=== PATIENT | female | born 1970 | race Caucasian/White ===

== ENCOUNTER 2016-12-23 09:56 | Emergency (ER) | payer BC, MEDICARE ==
[2016-12-23] MEDS ORDERED: IOPAMIDOL 370 (76%) 100 ML VIAL IV ONE (09:57)
[2016-12-23 10:31] LABS: SPECIFIC GRAVITY 1.015 (1.001-1.030); URINE BILIRUBIN NEGATIVE (NEGATIVE); URINE BLOOD NEGATIVE (NEGATIVE); URINE GLUCOSE (UA) NEGATIVE (NEGATIVE); URINE LEUKOCYTE ESTERASE NEGATIVE (NEGATIVE); URINE NITRITE NEGATIVE (NEGATIVE); URINE PROTEIN NEGATIVE (NEGATIVE); URINE UROBILINOGEN NORMAL (0-1 mg/dl)
[2016-12-23 10:32] LABS: URINE APPEARANCE CLEAR; URINE COLOR YELLOW
[2016-12-23 10:34] LABS: HCG,QUALITATIVE URINE NEGATIVE
[2016-12-23] MEDS ORDERED: HYDROMORPHONE HCL 1 MG/ML SYRINGE ONE (11:29)
[2016-12-23] MEDS ORDERED: PROCHLORPERAZINE 5 MG/ML 2 ML VIAL ONE (11:29)
[2016-12-23] MEDS ORDERED: LACTATED RINGERS 1,000 ML ONE (11:29)
[2016-12-23 11:41] LABS: ABSOLUTE NEUTROPHIL COUNT 2.9 K/mm3 (1.8-7.7); BASO % 0.5 % (0.2-1.0); EOS # 1.3 (0.0-0.5); EOS % 16.9 % (0.9-2.9); HEMATOCRIT 37.2 % (37.0-47.0); HEMOGLOBIN 12.4 gm/l (12.0-16.0); IMM NEUT% 0.1 % (0-1); LYMPH # 2.8 (1.0-4.8); MEAN CELL VOLUME 92.3 fl (81.0-99.0); MEAN CORPUSCULAR HEMOGLOBIN 30.8 pg (27.0-31.0); MEAN CORPUSCULAR HGB CONC 33.3 g/dl (33.0-37.0); MEAN PLATELET VOLUME 8.9 fl (7.4-10.4); MONO # 0.5 (0.0-0.8); MONO % 7.1 % (4-12); NEUT % 38.4 % (43-75); PLATELET COUNT 233 K/mm3 (130-400); RED CELL DISTRIBUTION WIDTH 11.6 % (11.5-14.5)
[2016-12-23 12:00] LABS: ALB/GLOB RATIO 1.8 (>1.0); MAGNESIUM 2.2 mg/dL (1.9-2.7)
[2016-12-23 12:03] LABS: TROPONIN I < 0.01 ng/ml (0.0-0.06)
[2016-12-23 12:07] LABS: CKMB ISOENZYME 1.2 ng/ml (0.6-6.3)
--- NOTE | 2016-12-23 12:10 | CT ---
CT ABDOMEN AND PELVIS WITH CONTRAST HISTORY: Diffuse abdominal pain with marked distention. TECHNIQUE: Following intravenous administration of 100cc of Isovue-370, contiguous axial images were acquired from the lung bases to the ischial tuberosities. Oral contrast was not administered. COMPARISON:None. FINDINGS: LUNG BASES: No gross airspace consolidation or pleural effusion. LIVER: Small cyst along the outer renal fossa, 3 mm in size. SPLEEN: No focal lesion. Stomach: Moderate gastric distention, surgical clips near the gastroesophageal junction of uncertain significance. PANCREAS: No focal lesion. ADRENAL GLANDS: No mass effect. KIDNEYS: No focal lesion. No collecting system dilatation. GALLBLADDER: Surgically absent. Prominent common bile duct, up to 1.5 cm in caliber. BOWEL: Extensive colonic fecal load, correlate for constipation. Fecaloid material extends to the ileum. No grossly dilated loops of small bowel. APPENDIX: Not identified. PELVIC ORGANS: Status post hysterectomy, no adnexal mass effect FREE FLUID: No gross free fluid identified. ABDOMINOPELVIC LYMPH NODES: No abnormally enlarged lymph nodes identified. ABDOMINAL AORTA: Normal caliber. OSSEOUS STRUCTURES: Evidence of prior L4-5 fusion with findings of lower lumbar facet degeneration. No destructive change. IMPRESSION: 1. Extensive fecal loading, correlate for constipation. Extension of fecaloid material into the terminal ileum without obstructive appearance of bowel. 2. No adnexal mass effect or free fluid. 3. Postsurgical change status post cholecystectomy, hysterectomy, lumbar fusion, and surgery along the gastroesophageal junction. 4. Extrahepatic biliary dilatation, common bile duct up to 1.5 cm in caliber. Results were electronically transmitted to the electronic medical record at 12/23/2016 at 1206 hours.
[2016-12-23] MEDS ORDERED: MAGNESIUM CITRATE 300 ML BOT ONE (13:14)
== END 2016-12-23 13:41 | disposition home or self-care (01) ==
LOC: ED 09:56
DX: K59.00 Constipation, unspecified (principal); I47.1 Supraventricular tachycardia
CPT/HCPCS: 83690; 81025; 85025; 82553; 80053; 83735; 81003; 84484; 74177; 96375; 99284 ×2; 96374; 93005; J0780; J1170; J7120; Q9967